=== PATIENT | female | born 1945 | race Caucasian/White ===

== ENCOUNTER → 2017-02-15 | Outpatient (CLI) | payer MEDICARE, BC | END | disposition home or self-care (01) | LOC: PCVCCLINIC 11:28 | PROVIDERS: ATTEND Internal Medicine | DX: I10 Essential (primary) hypertension (principal); C83.70 Burkitt lymphoma, unspecified site; E78.00 Pure hypercholesterolemia, unspecified; E78.5 Hyperlipidemia, unspecified; Z87.891 Personal history of nicotine dependence | CPT/HCPCS: 80061; 93005; G0463 ==

== ENCOUNTER → 2018-02-16 | Outpatient (CLI) | payer MEDICARE, BC | END | disposition home or self-care (01) | LOC: PCVCCLINIC 10:46 | DX: I10 Essential (primary) hypertension (principal); I73.9 Peripheral vascular disease, unspecified; C83.70 Burkitt lymphoma, unspecified site; E78.5 Hyperlipidemia, unspecified; I71.4 Abdominal aortic aneurysm, without rupture; Z87.891 Personal history of nicotine dependence | CPT/HCPCS: 80061; 93005; G0463 ==

== ENCOUNTER → 2018-02-27 | Outpatient (CLI) | payer MEDICARE, BC | END | disposition home or self-care (01) | LOC: PCVCIMAG 09:01 | DX: I65.23 Occlusion and stenosis of bilateral carotid arteries (principal); E78.5 Hyperlipidemia, unspecified; I73.9 Peripheral vascular disease, unspecified; I63.9 Cerebral infarction, unspecified; I71.4 Abdominal aortic aneurysm, without rupture; F17.210 Nicotine dependence, cigarettes, uncomplicated | CPT/HCPCS: 93306; 93880 ==

== ENCOUNTER → 2018-08-24 | Outpatient (CLI) | payer MEDICARE, BC | END | disposition home or self-care (01) | LOC: PCVCCLINIC 11:39 | PROVIDERS: ATTEND Internal Medicine | DX: I10 Essential (primary) hypertension (principal); I71.4 Abdominal aortic aneurysm, without rupture; E78.5 Hyperlipidemia, unspecified; I73.9 Peripheral vascular disease, unspecified; C83.70 Burkitt lymphoma, unspecified site; E78.00 Pure hypercholesterolemia, unspecified; Z87.891 Personal history of nicotine dependence | CPT/HCPCS: 80061; 93005; G0463 ==

== ENCOUNTER → 2019-03-21 | Outpatient (CLI) | payer OTHER | END | disposition home or self-care (01) | LOC: PCVCCLINIC 14:00 | PROVIDERS: ATTEND Internal Medicine | DX: I71.4 Abdominal aortic aneurysm, without rupture (principal); I73.9 Peripheral vascular disease, unspecified; C83.70 Burkitt lymphoma, unspecified site; I65.22 Occlusion and stenosis of left carotid artery; E78.5 Hyperlipidemia, unspecified; E78.00 Pure hypercholesterolemia, unspecified; I10 Essential (primary) hypertension; Z87.891 Personal history of nicotine dependence | CPT/HCPCS: 36415; 80061; 93005; G0463 ==

== ENCOUNTER → 2019-09-25 | Outpatient (CLI) | payer OTHER ==
--- NOTE | 2019-09-25 10:04 | PCVCIMAG ---
APPROVED REPORT Indications Stenosis History of Smoking Risk Factors Hypertension: Doppler Spectral Velocity Analysis PSV / EDVPSV / EDV ECA (R) 106 / 9 cm/sECA (L) 68 / 6 cm/s dICA (R) 90 / 37 cm/sdICA (L) 77 / 33 cm/s Jabari (R) 93 / 36 cm/smICA (L) 81 / 29 cm/s pICA (R) 76 / 32 cm/spICA (L) 171 / 48 cm/s Bulb (R) 77 / 20 cm/sBulb (L) 84 / 21 cm/s dCCA (R) 62 / 17 cm/sdCCA (L) 75 / 21 cm/s mCCA (R) 82 / 15 cm/smCCA (L) 108 / 26 cm/s Vert (R) 73 / 23 cm/sVert (L) 37 / 0 cm/s ICA/CCA 1.50ICA/CCA 2.28 Basic Measurements Blood Pressure: Pulses: Right Left RightLeft Brachial(Sitting) 164/16gtEv383/104mmHgTemporal Real Time B-Mode Imaging Vert. (R)AntegradeVert. (L)Antegrade Findings RIGHT CAROTID: The carotid bulb has moderate plaque. The proximal internal carotid artery shows <40% stenosis. The common carotid artery shows no significant stenosis. The external carotid artery shows no significant stenosis. LEFT CAROTID: The carotid bulb has moderately severe plaque. The proximal internal carotid artery shows 60-70% stenosis. The common carotid artery shows no significant stenosis. The external carotid artery shows no significant stenosis. Conclusion <40% stenosis of the right internal carotid artery with moderate plaque. 60-70% stenosis of the left internal carotid artery with moderately severe plaque. Since February 2018 left carotid stenosis has shown mild progression.
== END | disposition home or self-care (01) ==
LOC: PCVCIMAG 09:47
PROVIDERS: ATTEND Internal Medicine
DX: I65.23 Occlusion and stenosis of bilateral carotid arteries (principal); E78.5 Hyperlipidemia, unspecified; I10 Essential (primary) hypertension; I71.4 Abdominal aortic aneurysm, without rupture; C83.70 Burkitt lymphoma, unspecified site; E78.00 Pure hypercholesterolemia, unspecified; Z87.891 Personal history of nicotine dependence; Z79.899 Other long term (current) drug therapy
CPT/HCPCS: 93880